=== PATIENT | female | born 1940 | race Caucasian/White ===

== ENCOUNTER → 2019-12-04 | Outpatient (REF) | payer MEDICARE | LOC: M LAB REF 11:44 | PROVIDERS: ATTEND Ophthalmology | DX: H16.011 Central corneal ulcer, right eye (principal) ==

== ENCOUNTER → 2019-12-05 | Outpatient (REF) | payer MEDICARE | LOC: M LAB REF 16:16 | PROVIDERS: ATTEND Ophthalmology | DX: H16.011 Central corneal ulcer, right eye (principal) ==

== ENCOUNTER 2021-08-14 19:30 | Observation (INO) | payer MEDICARE ==
[~2021-08-14] VITALS: Ht 165.1 cm; Wt 74.9 kg
[2021-08-14 19:59] LABS: BASO % 0.1 % (0.0-1.0); EOS # 0.2 10^3/uL (0.0-0.5); EOS % 2.8 % (0.0-3.0); HEMATOCRIT 36.9 % (36.0-47.0); HEMOGLOBIN 12.3 g/dl (12.0-15.5); LYMPH # 2.5 10^3/uL (1.5-5.0); LYMPH % 34.9 % (24.0-44.0); MEAN CORPUSCULAR HEMOGLOBIN 34.5 pg (27.0-33.0); MEAN CORPUSCULAR HGB CONC 33.3 g/dl (32.0-36.5); MEAN CORPUSCULAR VOLUME 103.4 fl (80.0-96.0); MONO # 0.6 10^3/uL (0.0-0.8); MONO % 8.3 % (2.0-8.0); NEUTROPHILS # 3.8 10^3/uL (1.5-8.5); NEUTROPHILS % 53.8 % (36.0-66.0); PLATELET COUNT, AUTOMATED 197 10^3/uL (150-450); RED BLOOD COUNT 3.57 10^6/uL (4.00-5.40); WHITE BLOOD COUNT 7.1 10^3/uL (4.0-10.0)
[2021-08-14] MEDS ORDERED: LEVO75TA4 PO (20:02)
[2021-08-14] MEDS ORDERED: HYDR12.55 PO (20:02)
[2021-08-14] MEDS ORDERED: XARE15TA PO (20:02)
[2021-08-14] MEDS ORDERED: ASPI81CH33 PO (20:03)
[2021-08-14 20:10] LABS: INR 0.97; PROTHROMBIN TIME 13.3 SECONDS (12.7-14.5)
[2021-08-14 20:11] LABS: PARTIAL THROMBOPLASTIN TIME 33.3 SECONDS (25.9-37.0)
[2021-08-14 20:31] LABS: CALCIUM LEVEL 9.3 MG/DL (8.8-10.2); CREATININE FOR GFR 1.14 MG/DL (0.55-1.30); GLOMERULAR FILTRATION RATE 48.6 (>32); POTASSIUM SERUM 3.9 MEQ/L (3.5-5.1); THYROID STIMULATING HORMONE 1.64 uIU/ML (0.358-3.740)
[2021-08-14 20:51] LABS: RSV AMPLIFICATION NEGATIVE (NEGATIVE)
[2021-08-14 21:28] LABS: BILIRUBIN, URINE MANUAL NEGATIVE (NEGATIVE); GLUCOSE, URINE (UA) MANUAL NEGATIVE (NEGATIVE); KETONE, URINE MANUAL NEGATIVE (NEGATIVE); UROBILINOGEN, URINE MANUAL NORMAL (NORMAL)
[2021-08-14 21:45] LABS: AMORPHOUS SEDIMENT, URINE MOD AMOUNT (NEGATIVE); BACTERIA, URINE SMALL AMOUNT; HYALINE CAST, URINE NONE SEEN /lpf (0-1); RBC, URINE NONE SEEN /hpf (0-3); SQUAMOUS EPITHELIAL CELL URINE LARGE AMOUNT /hpf (SMALL AMT)
[2021-08-14] MEDS ORDERED: IRON65TA2 PO (22:01)
[2021-08-14] MEDS ORDERED: HOME MED LIST COMPLETE! XX SCH (22:05)
[2021-08-14] MEDS ORDERED: NS 1,000 ML IV SCH (22:45)
[2021-08-14] MEDS ORDERED: hydrALAZINE 20MG/ML 1ML VIAL (J0360 PER 20MG) IV PRN (23:00)
[2021-08-15] VITALS (35 sets, daily range): BP systolic 140–184; BP diastolic 65–96
[2021-08-15] MEDS ORDERED: ACETAMINOPHEN TAB 650MG DOSE (2X325MG) PO PRN (01:50)
[2021-08-15 05:15] LABS: CALCIUM LEVEL 9.2 MG/DL (8.8-10.2); GLOMERULAR FILTRATION RATE 56.5 (>32); MAGNESIUM LEVEL 2.1 MG/DL (1.8-2.4); POTASSIUM SERUM 3.7 MEQ/L (3.5-5.1)
[2021-08-15] MEDS ORDERED: ceFAZolin SOD 2 GM in IV 1 EA IV ONE (06:00)
[2021-08-15] MEDS ORDERED: CHLORHEXIDINE GLUCONATE 0.12 % 15ML UDC (PERIDEX ORAL RINSE) MT SCH (09:00)
[2021-08-15] MEDS ORDERED: NS 500 ML IV ONE (13:50)
[2021-08-15] MEDS ORDERED: ceFAZolin 1GM VIAL (J0690 PER 500MG) As Ordered ONE (14:34)
[2021-08-15] MEDS ORDERED: LIDOCAINE 1% SDV 30ML VIAL As Ordered ONE (14:34)
[2021-08-15] MEDS ORDERED: ISOVUE-300 61% 50ML VIAL As Ordered ONE (14:34)
[2021-08-15] MEDS ORDERED: fentaNYL 100 MCG/2 ML INJECTION As Ordered ONE (15:16)
[2021-08-15] MEDS ORDERED: MIDAZOLAM INJ 2MG/2ML VIAL (J2250 PER 1MG) As Ordered ONE (15:16)
[2021-08-15] MEDS ORDERED: propofoL 200 MG/20 ML VIAL As Ordered ONE (15:16)
[2021-08-15] MEDS ORDERED: LIDOCAINE 2% 100MG/5ML SDV (FOR ANES.) As Ordered ONE (15:16)
[2021-08-15] MEDS ORDERED: ceFAZolin 2 GM/D5W 50 ML IV BAG (J0690 PER 500MG) As Ordered ONE (15:26)
[2021-08-15] MEDS ORDERED: fentaNYL 100 MCG/2 ML INJECTION IV PRN (18:00)
[2021-08-15] MEDS ORDERED: ONDANSETRON 4MG/2ML VIAL IV PRN (18:00)
[2021-08-15] MEDS ORDERED: LR 1,000 ML IV SCH (18:00)
[2021-08-15] MEDS ORDERED: MEPERIDINE INJ 25 MG/ML VIAL (J2175) IV PRN (18:00)
[2021-08-16] VITALS: BP 126/72
[2021-08-16] MEDS: ceFAZolin SOD 1 GM in D5W MINI-BAG PLUS 50 ML IV SCH ×3 (00:02→16:13)
[2021-08-16 04:00] VITALS: BP 107/57
[2021-08-16 04:41] LABS: HEMATOCRIT 34.9 % (36.0-47.0); HEMOGLOBIN 11.4 g/dl (12.0-15.5); MEAN CORPUSCULAR HEMOGLOBIN 34.2 pg (27.0-33.0); MEAN CORPUSCULAR HGB CONC 32.7 g/dl (32.0-36.5); MEAN CORPUSCULAR VOLUME 104.8 fl (80.0-96.0); PLATELET COUNT, AUTOMATED 173 10^3/uL (150-450); RED BLOOD COUNT 3.33 10^6/uL (4.00-5.40); WHITE BLOOD COUNT 7.2 10^3/uL (4.0-10.0)
[2021-08-16 05:10] LABS: CALCIUM LEVEL 8.4 MG/DL (8.8-10.2); CREATININE FOR GFR 0.99 MG/DL (0.55-1.30); GLOMERULAR FILTRATION RATE 57.2 (>32); POTASSIUM SERUM 3.9 MEQ/L (3.5-5.1)
[2021-08-16 08:00] VITALS: BP 155/84
[2021-08-16] MEDS ORDERED: CHLORTHALIDONE 12.5MG PER 1/2 TABLET PO SCH (09:00)
[2021-08-16] MEDS ORDERED: SPIRONOLACTONE 12.5MG PER 1/2 TABLET PO SCH (09:00)
[2021-08-16] MEDS ORDERED: CHLO125TA PO ×2 (11:50→17:39)
[2021-08-16] MEDS ORDERED: LISI10TA22 PO (11:50)
[2021-08-16 12:00] VITALS: BP 127/74
[2021-08-16] MEDS ORDERED: NEOSPORIN OINT 0.9 GM PKT TOP ONE (17:10)
[2021-08-16] MEDS ORDERED: SPIR-10 PO (17:39)
[2021-08-17] MEDS ORDERED: SPIRONOLACTONE 12.5MG PER 1/2 TABLET PO SCH (09:00)
[2021-08-18] MEDS ORDERED: CHLORTHALIDONE 12.5MG PER 1/2 TABLET PO SCH (09:00)
== END 2021-08-16 18:04 | disposition home or self-care (01) ==
LOC: M ED 19:30 → M ED INP 19:31 → M PCU 08-15 00:43 → M ICU 08-15 01:02
PROVIDERS: ADMIT Internal Medicine; ATTEND Internal Medicine
DX: R55 Syncope and collapse (principal); I45.5 Other specified heart block; I49.5 Sick sinus syndrome; I44.0 Atrioventricular block, first degree; I16.0 Hypertensive urgency; I11.9 Hypertensive heart disease without heart failure; R94.31 Abnormal electrocardiogram [ECG] [EKG]; E03.9 Hypothyroidism, unspecified; Z87.74 Personal history of (corrected) congenital malformations of heart and circulatory system; Z86.718 Personal history of other venous thrombosis and embolism; Z86.73 Personal history of transient ischemic attack (TIA), and cerebral infarction without residual deficits; Z79.899 Other long term (current) drug therapy; Z79.01 Long term (current) use of anticoagulants; Z79.82 Long term (current) use of aspirin
CPT/HCPCS: 33208; 36415; 71045; 71046; 76000; 80048; 81000; 83735; 84443; 85025; 85027; 85610; 85730; 87086; 87631; 93005; 93306; 96361; 96365; 96366; 96374; 96376; 99285; C1785; C1898; G0378; J0360; J0690; J2250; J3010

== ENCOUNTER → 2023-11-20 | Outpatient (REF) | payer MEDICARE ==
[~2023-11-20] MED LIST: ASPI81CH33 PO; CHLO125TA PO; HYDR12.55 PO; IRON65TA2 PO; LEVO75TA4 PO; LISI10TA22 PO; SPIR-10 PO; XARE15TA PO
[2023-11-20 19:52] LABS: FOLATE > 24.0 NG/ML (>5.4); TOTAL IRON BINDING CAPACITY 273 UG/DL (250-425)
[2023-11-20 19:53] LABS: VITAMIN B12 LEVEL 847 PG/ML (211-911)
[2023-11-20 19:54] LABS: IRON (FE) 72 UG/DL (50-170); PERCENT SATURATION 26.4 % (13.2-45.0)
== END ==
LOC: M LAB REF 17:47
PROVIDERS: ATTEND Internal Medicine Nephrology
DX: D50.9 Iron deficiency anemia, unspecified (principal); D53.1 Other megaloblastic anemias, not elsewhere classified

== ENCOUNTER → 2024-04-30 | Outpatient (REF) | payer MEDICARE ==
[2024-04-30 19:22] LABS: PERCENT SATURATION 33.4 % (13.2-45.0)
== END ==
LOC: M LAB REF 17:31
PROVIDERS: ATTEND Internal Medicine Nephrology
DX: D50.9 Iron deficiency anemia, unspecified (principal)

== ENCOUNTER 2024-07-06 19:31 | Inpatient (IN) | payer MEDICARE ==
[~2024-07-06] VITALS: Ht 160 cm; Wt 65.0 kg
[2024-07-06] MEDS: NS 0.9% IV ONE (19:15)
[2024-07-06] MEDS: [UNRECOGNIZED DRUG - OTHER] IV ONE (19:15)
[2024-07-06] MEDS: NS 250 ML IV SCH (21:00)
[2024-07-06 21:05] LABS: VENOUS BASE EXCESS -11.3 (-2.0-2.0); VENOUS HCO3 15.4 MMOL/L (23.0-27.0); VENOUS O2 SATURATION 81.3 % (60.0-80.0); VENOUS PARTIAL PRESSURE CO2 37.9 mmHg (38.0-50.0); VENOUS PARTIAL PRESSURE O2 53.6 mmHg (30.0-50.0); VENOUS PH 7.228 UNITS (7.330-7.430); VENOUS STANDARD HCO3 15.2 MMOL/L; VENOUS TOTAL CO2 16.6 MMOL/L (24.0-28.0)
[2024-07-06] MEDS: NS (Normal Saline) 0.9% 1,000 ML IV SCH (21:05)
[2024-07-06 21:09] LABS: BASO % 0.1 % (0.0-1.0); HEMATOCRIT 28.6 % (36.0-47.0); HEMOGLOBIN 10.1 g/dl (12.0-15.5); LYMPH # 0.8 10^3/uL (1.5-5.0); LYMPH % 5.7 % (24.0-44.0); MEAN CORPUSCULAR HGB CONC 35.3 g/dl (32.0-36.5); MEAN CORPUSCULAR VOLUME 107.5 fl (80.0-96.0); MONO # 0.6 10^3/uL (0.0-0.8); MONO % 4.3 % (2.0-8.0); NEUTROPHILS # 12.6 10^3/uL (1.5-8.5); NEUTROPHILS % 89.3 % (36.0-66.0); PLATELET COUNT, AUTOMATED 182 10^3/uL (150-450); RED BLOOD COUNT 2.66 10^6/uL (4.00-5.40); WHITE BLOOD COUNT 14.1 10^3/uL (4.0-10.0)
[2024-07-06 21:21] LABS: INR 1.12; PARTIAL THROMBOPLASTIN TIME 38.2 SECONDS (24.8-34.2); PROTHROMBIN TIME 14.8 SECONDS (12.5-14.5)
[2024-07-06 21:24] LABS: APPEARANCE, URINE CLOUDY (CLEAR); BACTERIA, URINE AUTO NEGATIVE (NEGATIVE); BILIRUBIN, URINE AUTO NEGATIVE (NEGATIVE); BLOOD, URINE BLOOD 3+ (NEGATIVE); COLOR, URINE AMBER (YELLOW); GLUCOSE, URINE (UA) AUTO NEGATIVE (NEGATIVE); GRANULAR CAST, URINE AUTO 11 /LPF; KETONE, URINE AUTO NEGATIVE (NEGATIVE); LEUKOCYTE ESTERASE, URINE AUTO NEGATIVE (NEGATIVE); MUCUS, URINE SMALL (NEGATIVE); NITRITE, URINE AUTO NEGATIVE (NEGATIVE); PROTEIN, URINE AUTO 1+ mg/dL (NEGATIVE); RBC, URINE AUTO 0 /HPF (0-3); SPECIFIC GRAVITY URINE AUTO 1.017 (1.002-1.035); SQUAMOUS EPITHELIAL CELL UR AU 1 /HPF (0-6); UROBILINOGEN, URINE AUTO 0.2 mg/dL (0.0-2.0); WBC, URINE AUTO 5 /HPF (0-3)
[2024-07-06 21:34] LABS: C REACTIVE PROTEIN QUANTITATIV 8.4 MG/DL (<1.0)
[2024-07-06 21:41] LABS: PROCALCITONIN 0.16 ng/ml
[2024-07-06 22:05] LABS: ALBUMIN 2.5 G/DL (3.2-5.2); BILIRUBIN,DIRECT 0.1 MG/DL (<0.4); BILIRUBIN,TOTAL 0.4 MG/DL (0.3-1.2); CREATININE FOR GFR 2.31 MG/DL (0.55-1.30); GLOMERULAR FILTRATION RATE 21.4 (>32); POTASSIUM SERUM 7.1 MMOL/L (3.5-5.1); TOTAL PROTEIN 5.9 G/DL (5.7-8.2)
[2024-07-06] MEDS: DEXTROSE 50% 50ML SYRINGE IV ONE (22:42)
[2024-07-06] MEDS: HumuLIN R (REGULAR) INSULIN (NovoLIN R) **100U/ML** PER UNIT IV ONE (22:42)
[2024-07-06] MEDS: SODIUM BICARBONATE 8.4% INJ 50ML SYRINGE IV ONE (22:43)
[2024-07-06] MEDS: CALCIUM CHLORIDE 10% 1 GM/10 ML SYR IV ONE (22:43)
[2024-07-06] MEDS: NS (Normal Saline) 0.9% 1,000 ML IV ONE (23:05)
[2024-07-06] MEDS: SODIUM BICARBONATE 75 MEQ in NS 0.45% 1,000 ML IV SCH (23:55)
[2024-07-07] MEDS ORDERED: MOM 30ML SUSPENSION UDC PO PRN (00:05)
[2024-07-07] MEDS ORDERED: HEPARIN SOD (PORCINE) 5000UNITS/ML 1ML VIAL/SYRINGE SC SCH (00:05)
[2024-07-07] MEDS ORDERED: VANCOMYCIN HCL 1,000 MG, VIAL MATE ADAPTER 1 EACH in NS 250 ML IV SCH (00:30)
[2024-07-07] MEDS: PIPERACILLIN/TAZOBACTAM SOD 4.5 GM in DEXTROSE 5% (D5W) ADV/MINI-BAG 50 ML IV SCH (01:30)
[2024-07-07] MEDS: PHENYLEPHRINE HCL INJ 50 MG in D5W 495 ML IV SCH (02:07)
[2024-07-07 02:57] VITALS: BP 124/89; TEMP 94.2
[2024-07-07] MEDS: VANCOMYCIN HCL 1,000 MG, VIAL MATE ADAPTER 1 EACH in NS 250 ML IV ONE (03:00)
[2024-07-07 03:16] VITALS: O2SAT 88
[2024-07-07] MEDS ORDERED: DARB100SYR SC (03:28)
[2024-07-07] MEDS ORDERED: CALC500C16 PO (03:28)
[2024-07-07] MEDS ORDERED: LISI10TA22 PO (03:28)
[2024-07-07] MEDS ORDERED: MULT-90 PO (03:28)
[2024-07-07] MEDS ORDERED: ALEN70TA82 PO (03:28)
[2024-07-07] MEDS ORDERED: SPIR-10 PO (03:28)
[2024-07-07] MEDS ORDERED: CHOL10CA2 PO (03:28)
[2024-07-07] MEDS ORDERED: CHLO125TA PO (03:28)
[2024-07-07] MEDS ORDERED: HOME MED LIST COMPLETE! XX SCH (03:35)
[2024-07-07] MEDS ORDERED: DOCUSATE SODIUM 100MG CAPSULE PO SCH (09:00)
== END 2024-07-07 03:20 | disposition expired | DRG 871 ==
LOC: EDBD 19:31 → M ED 19:31 → M ED INP 23:53
PROVIDERS: ADMIT Internal Medicine Critical Care Medicine; ATTEND Internal Medicine Critical Care Medicine
DX: A41.9 Sepsis, unspecified organism (principal); K72.00 Acute and subacute hepatic failure without coma; R65.21 Severe sepsis with septic shock; N17.9 Acute kidney failure, unspecified; E87.20 Acidosis, unspecified; M62.82 Rhabdomyolysis; T68.XXXA Hypothermia, initial encounter; Z66 Do not resuscitate; W19.XXXA Unspecified fall, initial encounter; Y92.002 Bathroom of unspecified non-institutional (private) residence as the place of occurrence of the external cause; E03.9 Hypothyroidism, unspecified; I10 Essential (primary) hypertension; E87.5 Hyperkalemia; R74.01 Elevation of levels of liver transaminase levels; Z79.01 Long term (current) use of anticoagulants; Z79.82 Long term (current) use of aspirin; Z79.890 Hormone replacement therapy; Z79.899 Other long term (current) drug therapy; Z86.73 Personal history of transient ischemic attack (TIA), and cerebral infarction without residual deficits; Z95.0 Presence of cardiac pacemaker; Z98.42 Cataract extraction status, left eye; Z98.41 Cataract extraction status, right eye